=== PATIENT | female | born 1975 | race Two or more races ===

== ENCOUNTER 2017-11-29 13:23 | Day surgery (SDC) | payer BC ==
[2017-11-29] MEDS ORDERED: OXYMETAZOLINE 30 ML NASAL SPRAY ONE (13:36)
[2017-11-29] MEDS ORDERED: LIDOCAINE 1% 5 ML SDV ONE (13:37)
[2017-11-29] MEDS ORDERED: EPINEPHrine 1 MG/ML INJ ONE (13:37)
[2017-11-29] MEDS ORDERED: BACITRACIN ZINC 14.2 GM OINTTUBE TP ONE (13:37)
[2017-11-29] MEDS ORDERED: LIDOCAINE 1% 300 MG/30 ML SDV ONE (13:38)
[2017-11-29] MEDS ORDERED: LR 1,000 ML IV ONE (13:48)
[2017-11-29] MEDS ORDERED: OXYMETAZOLINE 30 ML NASAL SPRAY EACHNARE ONE (14:50)
--- NOTE | 2017-11-29 14:51 | PDHPUP ---
History & Physical Update H&P update statement: This history and physical update is based on an assessment of the patient which was completed after admission or registration (within 24 hours), but prior to the surgery/procedure. H&P update: H&P reviewed & patient examined, no change in patient's condition since H&P completed
--- NOTE | 2017-11-29 14:59 | PDANEPAE ---
ANE Past Medical History - Cardiovascular History Hx Hypertension: No Hx Arrhythmias: No Hx Chest Pain: No Hx Coronary Artery / Peripheral Vascular Disease: No Hx CHF / Valvular Disease: No Hx Palpitations: No - Pulmonary History Hx COPD: No Hx Asthma/Reactive Airway Disease: No Hx Recent Upper Respiratory Infection: No Hx Oxygen in Use at Home: No Hx Sleep Apnea: No Sleep Apnea Screening Result - Last Documented: Negative - Neurologic History Hx Cerebrovascular Accident: No Hx Seizures: No Hx Dementia: No - Endocrine History Hx Diabetes: No - Renal History Hx Renal Disorders: No - Liver History Hx Hepatic Disorders: No - Neurological & Psychiatric Hx Hx Neurological and Psychiatric Disorders: No - Cancer History Hx Cancer: No - Congenital Disorder History Hx Congenital Disorders: No - GI History Hx Gastrointestinal Disorders: No - Other Health History Other Health History: EPISTAXIS. DEVIATED SEPTUM - Chronic Pain History Chronic Pain: No - Surgical History Prior Surgeries: SPINAL FUSION L5-S1 2009 ANE Review of Systems Review of Systems: - Exercise capacity METS (RN): 4 METS ANE Patient History - Allergies Allergies/Adverse Reactions: Penicillins Allergy (Verified 11/19/17 14:16) CONVULSION - Home Medications Home Medications: Herbals/Supplements -Info Only DAILY 11/19/17 [Last Taken 11/28/17] - NPO status NPO Since - Liquids (Date): 11/29/17 NPO Since - Liquids (Time): 11:00 NPO Since - Solids (Date): 11/28/17 NPO Since - Solids (Time): 23:00 - Smoking Hx Smoking Status: Never smoked - Family Anes Hx Family Hx Anesthesia Complications: NEG ANE Labs/Vital Signs - Vital Signs Blood Pressure: 127/79 Heart Rate: 86 Respiratory Rate: 16 O2 Sat (%): 96 Height: 162.56 cm Weight: 83.915 kg ANE Physical Exam - Airway Mallampati Score: Class 1 - ASA Status ASA Status: II ANE Anesthesia Plan Anesthesia Plan: general endotracheal anesthesia
[2017-11-29] MEDS ORDERED: fentaNYL 100 MCG/2 ML INJ ONE (15:04)
[2017-11-29] MEDS ORDERED: MIDAZOLAM 2 MG/2 ML VIAL ONE (15:04)
[2017-11-29] MEDS ORDERED: PROPOFOL 200 MG/20 ML VIAL ONE (15:05)
[2017-11-29] MEDS ORDERED: METOCLOPRAMIDE 10 MG/2 ML VIAL ONE (15:06)
[2017-11-29] MEDS ORDERED: ONDANSETRON 4 MG/2 ML VIAL ONE (15:06)
[2017-11-29] MEDS ORDERED: ROCURONIUM 50 MG/5 ML VIAL ONE (15:06)
[2017-11-29] MEDS ORDERED: NALOXONE HCL 0.4 MG/ML INJ IVP PRN (16:44)
[2017-11-29] MEDS ORDERED: fentaNYL 100 MCG/2 ML INJ IVP PRN (16:44)
[2017-11-29] MEDS ORDERED: LR 500 ML IV PRN (16:44)
[2017-11-29] MEDS ORDERED: HYDROmorphONE/DILAUDID 1 MG/ML INJ IVP PRN (16:44)
[2017-11-29] MEDS ORDERED: PROMETHAZINE HCL 25 MG/ML INJ IVP PRN (16:44)
--- NOTE | 2017-11-29 16:44 | POSTANESTH ---
Post Anesthetic Evaluation Cardiovascular Status: Normal, Stable Respiratory Status: Normal, Stable Level of Consciousness/Mental Status: Can Participate in Eval Pain Control: Adequate, Prn Tx Ordered Nausea/Vomiting Control: Adequate, Prn Tx Ordered Complications Possibly Related to Anesthesia: None Noted
[2017-11-29] MEDS ORDERED: OXYCODONE/APAP 5/325 TAB PO ONE (18:15)
[2017-11-29 18:53] VITALS: BP 129/78
--- NOTE | 2017-12-18 14:33 | GOP ---
[f rep st] OPERATIVE REPORT DATE OF OPERATION: 11/29/2017 SURGEON: Hardy Ayala MD ANESTHESIA: General. PREOPERATIVE DIAGNOSIS: 1. Obstructive septal deviation. 2. Bilateral inferior turbinate hypertrophy. POSTOPERATIVE DIAGNOSIS: 1. Obstructive septal deviation. 2. Bilateral inferior turbinate hypertrophy. PROCEDURE PERFORMED: Endoscopically-assisted septoplasty and inferior turbinate submucosal resection with outfracture. FINDINGS: Obstructive septal deviation, bilateral hypertrophic inferior turbinates. SPECIMENS: None. ESTIMATED BLOOD LOSS: Minimal. INDICATIONS: Patient was seen in outpatient clinic and found to have nasal obstruction recalcitrant to medical therapy. This was traced to her inferior turbinate hypertrophy and nasal septal deviation . She was determined to be an appropriate candidate for the above-stated procedures. The risks, alia efits, and alternatives to the procedure were explained at length with the patient, who stated she un derstood and wished to go forward with them. DESCRIPTION OF PROCEDURE: Patient was brought to the operating room by Anesthesiology, and placed on the operating table. Once appropriate level of anesthesia was achieved, bilateral nasal columella, septal mucosa, and inferior turbinates were injected with 1% lidocaine with 100,000 epinephrine. Afr in-soaked pledgets were then placed bilaterally. The patient was then prepped and draped in usual fa shion. After prepping and draping, the pledgets were removed. The remainder of the procedure was pe rformed under 0 degree video endoscopic visualization. A left hemitransfixion incision was created w ith a needle-tip Bovie electrocautery. The submucoperichondrial and submucoperiosteal elevation of t he septal flap were completed with a combination of George elevator and suction Eagle. Once this was appropriately elevated, a George elevator was used to create a vertical incision at the bony cartila ginous junction. The deviated portions of quadrangular cartilage were incised with a D knife. Care was taken to leave at least 1 cm of dorsal and caudal septal support. The incised portion of quadran gular cartilage was then elevated off the contralateral mucosa with a Eagle elevator. This was then removed with a Ross. The contralateral mucosa was elevated off the bony septum. A straight Desire o scissor was used to create a superior cut in the bony septum. The Ross was then used to remov e the remaining portions of deviated bony septum. There was a mild amount of bleeding in the surgica l bed, and this was controlled with Afrin-soaked pledgets. Once these were removed, there appeared t o be good hemostasis. The flap was laid back in place, and there was determined to be straight and m idline under endoscopic visualization through bilateral nasal cavities. The hemitransfixion incision was then closed with two 4-0 chromic interrupted sutures. Submucosal resection of the inferior turbinates was then completed. A 2-0 inferior turbinate blade w as used to create an anterior stab incision in the right inferior turbinate. A submucosal resection continued in the usual fashion, and there was good soft tissue reduction of the turbinate. This was repeated at the left, and again, there was good soft tissue reduction. A Eagle elevator was then use d to infracture, then outfracture the right inferior turbinate, and then the left inferior turbinate. There was good lateralization with this. Under endoscopic visualization, there was then good visua lization through the nasopharynx from bilateral nasal vestibules. No significant bleeding was seen. Bacitracin coated Mora splints were then placed in bilateral nasal cavities. These were secured in place with a single 3-0 Prolene suture. The patient tolerated these procedures well, and was extuba andrew in the operating room prior to being transferred in good condition to the postanesthesia care [facility]. COMPLICATIONS: None. /[id number]/MODL
== END 2017-11-29 18:53 | disposition home or self-care (01) ==
LOC: FSGY 13:23
PROVIDERS: ATTEND Otolaryngology
DX: J34.89 Other specified disorders of nose and nasal sinuses (principal); Z98.1 Arthrodesis status; J34.2 Deviated nasal septum
CPT/HCPCS: J0171; J2250; J2405; J2704; J2765; J3010